=== PATIENT | female | born 2000 | race Caucasian/White ===

== ENCOUNTER 2019-03-09 10:54 | Emergency (ER) | payer OTHER ==
[2019-03-09 11:29] VITALS: BP 112/75
--- NOTE | 2019-03-09 12:06 | UC ---
Ear Complaint HPI - HPI Summary HPI Summary: has had URI symps for 4-5 days. today awoke with very painful R ear, no drainage - History of Current Complaint Chief Complaint: UCEar Stated Complaint: EAR PAIN Time Seen by Provider: 03/09/19 11:33 Hx Obtained From: Patient Hx Last Menstrual Period: 03/02/19 ?: No Onset/Duration: Gradual Onset Severity Initially: Mild Severity Currently: Moderate Pain Intensity: 5 Associated Signs/Symptoms: Negative: Discharge, Hearing Loss, Foreign Body Sensation - Allergies/Home Medications Allergies/Adverse Reactions: Allergies Allergy/AdvReac Type Severity Reaction Status Date / Time No Known Allergies Allergy Verified 03/09/19 11:29 Home Medications: Home Medications Antihistimine 500 mg PO ONCE PRN 03/09/19 [History Confirmed 03/09/19] Dm/PE/Acetaminophen/Doxylamine [Cold & Relief Plus Liquid Gel] 1 each PO QPM PRN 03/09/19 [History Confirmed 03/09/19] Norethindrone-E.estradiol-Iron [Blisovi Fe 1-20 Tablet] 12 tab PO DAILY [History Confirmed 03/09/19] Propranolol HCl 80 mg PO DAILY 03/09/19 [History Confirmed 03/09/19] PMH/Surg Hx/FS Hx/Imm Hx Previously Healthy: Yes Neurological History: Migraine - Surgical History Surgical History: Yes Surgery Procedure, Year, and Place: EAR TUBES - Family History Known Family History: Positive: Other - mom has migraines - Social History Occupation: Employed Part-time, Student Lives: With Family Alcohol Use: Occasionally Substance Use Type: None Smoking Status (MU): Never Smoked Tobacco Have You Smoked in the Last Year: No Household Exposure Type: Cigarettes - Immunization History Hx Tetanus, Diphtheria Vaccination: Yes Vaccination Up to Date: Yes Review of Systems All Other Systems Reviewed And Are Negative: Yes Constitutional: Positive: Negative Skin: Positive: Negative. Negative: Rash Eyes: Positive: Negative ENT: Positive: Sore Throat, Ear Ache, Sinus Congestion Respiratory: Positive: Negative Cardiovascular: Positive: Negative Neurological: Positive: Negative Psychological: Positive: Negative Is Patient Immunocompromised?: No Physical Exam Triage Information Reviewed: Yes Appearance: Well-Appearing, No Pain Distress, Well-Nourished Vital Signs: Initial Vital Signs Temp 98.1 F 03/09/19 11:22 Pulse 69 03/09/19 11:22 Resp 18 03/09/19 11:22 BP 112/75 03/09/19 11:22 Pulse Ox 100 03/09/19 11:22 Vital Signs Reviewed: Yes Eyes: Positive: Conjunctiva Clear ENT: Positive: Pharynx normal, TM bulging, TM dull, TM red - R side Respiratory Exam: Normal Cardiovascular Exam: Normal Musculoskeletal Exam: Normal Neurological Exam: Normal Psychological Exam: Normal Skin Exam: Normal Skin: Negative: Rashes Ear Complaint Course/Dx - Differential Dx/Diagnosis Differential Diagnosis/HQI/PQRI: Cerumen Impaction, Foreign Body, Otitis Media Provider Diagnosis: Otitis media Discharge - Sign-Out/Discharge Documenting (check all that apply): Patient Departure All imaging exams completed and their final reports reviewed: No Studies - Discharge Plan Condition: Stable Disposition: HOME Prescriptions: Amoxicillin/Clavulanate TAB* [Augmentin TAB 875*] 875 mg PO BID #20 tab Patient Education Materials: Ear Infection (ED) Referrals: Ally BIRMINGHAMPLala [Primary Care Provider] - 2 Days (if n better) Additional Instructions: start antibiotic and take as directed use ibuprofen 600mg every 6 hours as needed for pain - take with food - Billing Disposition and Condition Condition: STABLE Disposition: Home
== END 2019-03-09 12:10 | disposition home or self-care (01) ==
LOC: UCEAST 10:54
DX: H66.91 Otitis media, unspecified, right ear (principal)
CPT/HCPCS: 99212; G0463